=== PATIENT | female | born 1980 | race Caucasian/White ===

== ENCOUNTER → 2024-01-23 | Outpatient (CLI) | payer OTHER, SELFPAY ==
[2024-01-23 12:45] LABS: Thyroid Stim Hormone (TSH) 1.84 uIU/mL (0.358-3.74)
== END | disposition home or self-care (01) ==
LOC: BIMLAB 11:12
PROVIDERS: PCP Internal Medicine; Referring Provider Internal Medicine; Visit Provider Internal Medicine
DX: Z13.29 Encounter for screening for other suspected endocrine disorder (principal); E66.9 Obesity, unspecified
CPT/HCPCS: 36415; 83036; 84439; 84443

== ENCOUNTER → 2024-05-12 | Outpatient (CLI) | payer OTHER, SELFPAY ==
[2024-05-12 12:21] LABS: Absolute Lymphocyte Count 1.99 X10^3/uL (0.83-4.51); Basophil# 0.07 X10^3/uL; Eosinophil# 0.21 X10^3/uL; Eosinophils% 3.1 % (0-5); Hematocrit 39.2 % (37-47); Hemoglobin 12.8 g/dL (12.0-15.0); Lymphocyte # 1.99 X10^3/ul (0.83-4.51); Lymphocyte % 29.7 % (19-41); Mean Corp Hgb Conc 32.7 g/dL (32-36); Mean Corpuscular Hgb 28.4 pg (27.0-32.0); Mean Corpuscular Volume 86.9 fL (81-99); Mean Platelet Vol. 10.8 fl (6.2-12.0); Monocyte# 0.38 X10^3/uL; Monocyte% 5.7 % (0-10); NRBC Flagged by Analyzer 0 % (0-5); Neutrophil # 4.03 X10^3/uL (2.7-7.7); Neutrophil % 60.1 % (47-70); Platelet Count 325 K/mm3 (150-450); RBC Distribution Width CV 13.1 % (11.6-14.6); RBC Distribution Width SD 41.1 fl (35.1-43.9); Red Blood Count 4.51 M/mm3 (4.2-5.4); White Blood Count 6.7 K/mm3 (4.4-11.0)
[2024-05-12 12:25] LABS: ALB/GLOB Ratio 0.9 RATIO (0.9-2.4); AST(SGOT) 14 U/L (15-37); Alanine Aminotransfer ALT/SGPT 22 U/L (13-56); Albumin, Serum 3.3 g/dL (3.2-5.0); Alkaline Phosphatase 52 U/L (45-117); Anion Gap 7 (5-15); BUN 11 mg/dL (7-18); BUN/Creat Ratio 11.2 RATIO (10-20); Calcium,Total 9.4 mg/dL (8.5-10.1); Chloride 108 mmol/L (98-107); Creatinine, Serum 0.98 mg/dL (0.55-1.02); EST Glomerular Filtration Rate 66 mL/min (>60); Est Glom Filt Rate - Afr Amer 79 mL/min (>60); Globulin 3.7 g/dL (2.2-4.2); Glucose 90 mg/dL (74-106); Potassium 3.9 mmol/L (3.5-5.1); Sodium Level 138 mmol/L (136-145)
[2024-05-12 13:04] LABS: Amphetamine Urine VISTA POSITIVE (<1000 ng/mL); Barbiturate Urine VISTA NEGATIVE (< 200 ng/mL); Benzodiazepine Urine VISTA NEGATIVE (< 200 ng/mL); Cocaine Urine VISTA NEGATIVE (< 300 ng/mL); Ecstacy Urine VISTA NEGATIVE (< 500 ng/mL); Methadone Urine VISTA NEGATIVE (< 300 ng/mL); PCP Urine VISTA NEGATIVE (< 25 ng/mL); THC Urine VISTA NEGATIVE (< 50 ng/mL); Vista UDS pH Range 5
== END | disposition home or self-care (01) ==
LOC: BIMLAB 09:39
PROVIDERS: PCP Internal Medicine; Referring Provider Internal Medicine; Visit Provider Internal Medicine
DX: F90.9 Attention-deficit hyperactivity disorder, unspecified type (principal); Z51.81 Encounter for therapeutic drug level monitoring; E66.9 Obesity, unspecified
CPT/HCPCS: 36415; 80053; 80307; 85025

== ENCOUNTER → 2024-08-11 | Outpatient (CLI) | payer OTHER, SELFPAY ==
[2024-08-11 12:48] LABS: ALB/GLOB Ratio 0.8 RATIO (0.9-2.4); AST(SGOT) 8 U/L (15-37); Alanine Aminotransfer ALT/SGPT 14 U/L (13-56); Albumin, Serum 3.2 g/dL (3.2-5.0); Alkaline Phosphatase 66 U/L (45-117); Anion Gap 7 (5-15); BUN 10 mg/dL (7-18); BUN/Creat Ratio 10.6 RATIO (10-20); Calcium,Total 9.3 mg/dL (8.5-10.1); Chloride 106 mmol/L (98-107); Creatinine, Serum 0.95 mg/dL (0.55-1.02); EST Glomerular Filtration Rate 68 mL/min (>60); Est Glom Filt Rate - Afr Amer 83 mL/min (>60); Glucose 111 mg/dL (74-106); Potassium 3.7 mmol/L (3.5-5.1); Protein, Total 7.2 g/dL (6.4-8.2); Sodium Level 138 mmol/L (136-145)
== END | disposition home or self-care (01) ==
LOC: BIMLAB 10:06
PROVIDERS: PCP Internal Medicine; Referring Provider Internal Medicine; Visit Provider Internal Medicine
DX: E66.9 Obesity, unspecified (principal); F90.9 Attention-deficit hyperactivity disorder, unspecified type
CPT/HCPCS: 36415; 80053

== ENCOUNTER → 2025-01-19 | Outpatient (CLI) | payer OTHER, SELFPAY | END | disposition home or self-care (01) | LOC: LABSPEC 11:21 | PROVIDERS: PCP Internal Medicine; Referring Provider Physician Assistant; Visit Provider Physician Assistant | DX: R35.0 Frequency of micturition (principal) | CPT/HCPCS: 87077; 87086; 87088; 87186 ==

== ENCOUNTER → 2025-03-23 | Outpatient (CLI) | payer OTHER, SELFPAY ==
[2025-03-23 13:11] LABS: Amphetamine Urine NEGATIVE (<1000 ng/mL); Barbiturate Urine NEGATIVE (< 200 ng/mL); Benzodiazepine Urine NEGATIVE (< 200 ng/mL); Buprenorphine Urine NEGATIVE (< 200 ng/mL); Cocaine Urine NEGATIVE (< 300 ng/mL); Fentanyl, Urine NEGATIVE; Methadone Urine NEGATIVE (< 300 ng/mL); Opiates Urine NEGATIVE (< 300 ng/mL); Oxycodone, Urine NEGATIVE (< 100 ng/mL); PCP Urine NEGATIVE (< 25 ng/mL); THC Urine NEGATIVE (< 50 ng/mL)
== END | disposition home or self-care (01) ==
LOC: LABSPEC 09:58
PROVIDERS: PCP Internal Medicine; Referring Provider Internal Medicine; Visit Provider Internal Medicine
DX: F90.9 Attention-deficit hyperactivity disorder, unspecified type (principal); Z51.81 Encounter for therapeutic drug level monitoring
CPT/HCPCS: 80307

== ENCOUNTER → 2025-06-28 | Outpatient (CLI) | payer OTHER, SELFPAY ==
[2025-06-29 10:03] LABS: BETA-HYDROXYBUTYRATE 0.2 mmol/L (0.0-0.3)
== END | disposition home or self-care (01) ==
LOC: LAB 15:32
PROVIDERS: PCP Internal Medicine; Referring Provider Internal Medicine; Visit Provider Internal Medicine
DX: E87.8 Other disorders of electrolyte and fluid balance, not elsewhere classified (principal)
CPT/HCPCS: 82010

== ENCOUNTER 2025-09-11 07:29 | Emergency (ER) | payer OTHER, SELFPAY ==
[2025-09-11 07:30] VITALS: BP 129/97; PULSE 103; RESP 16; TEMP 36.2; O2SAT 100; BMI 35.2
--- NOTE | 2025-09-11 07:50 | EX.ED.DYSGE1 ---
HPI History of Present Illness Chief Complaint: Rash Informant: patient Narrative Narrative: Patient is a 45-year-old female presenting with a pruritic rash. - Rash onset following a recent trip to [place]; initially thought to be insect bites. - Rash is worsening, with new lesions appearing, particularly severe on the legs. - Extremely pruritic. - Lesions have spread to the chest and scalp. - Denies similar symptoms in other family members. - Suspected bed bugs; no evidence found. - Mother suggested chickenpox; patient reports having had chickenpox twice as a child. [facility] Medical History High anion gap Colon cancer screening URI (upper respiratory infection) Medication monitoring encounter ADHD Obesity (BMI 30-39.9) Screening for thyroid disorder Preventative health retirement Medications ?Medication ?Instructions ?Recorded ?Last Taken ?Type drospirenone 3 mg-ethinyl 1 tab PO QDAY #84 tabs 06/15/25 Unknown Rx estradiol 0.02 mg tablet (Jazlyn (28)) permethrin 5 % topical cream 1 applic topical Q14D 2 doses #60 09/11/25 Unknown Rx (Elimite) grams Allergy/AdvReac Type Severity Reaction Status Date / Time minocycline Allergy Mild Anaphylaxis Verified 06/24/25 08:21 Family History Father Multiple myeloma Diabetes Surgical History History of tonsillectomy Social History adopted: No household members: significant other and family current occupational status: employed current occupation: [employer], also self employed. pets and animals: Yes (1) pets and animals: dog(s) Smoking Status: Former smoker Tobacco: How many years used: 15 alcohol intake: current alcohol intake frequency: a few times a week substance use type: does not use caffeine: Yes (2) Type: coffee and other frequency: 1-2 times per week do you feel safe at home: Yes ROS ROS ED Constitutional Constitutional ED: Denies chills or fever(s) Eyes Eyes: Denies change in vision or diplopia ENT ENT ED: Denies rhinorrhea or sore throat Cardiovascular Cardiovascular: Denies chest pain or palpitations Respiratory/Chest Respiratory/Chest: Denies cough or dyspnea Gastrointestinal Gastrointestinal: Denies abdominal pain, diarrhea, nausea or vomiting Genitourinary Genitourinary ED: Denies dysuria or hematuria Musculoskeletal Musculoskeletal: Denies back pain or neck pain Integumentary Reports pruritus and rash; Denies abscess Neurologic Neurologic: Denies headache(s), paresthesias or weakness EXAM Physical Exam Const Vital Signs: 09/11/25 07:30 Temperature 97.1 F L Temperature Source Temporal Pulse Rate 103 H Respiratory Rate 16 Blood Pressure 129/97 H Blood Pressure Mean 107 Pulse Ox 100 Oxygen Delivery Method Room Air Positive well nourished and well developed General Appearance ED: well developed and NAD Eyes PERRL and EOMs intact bilaterally Neck full ROM and supple Resp normal respiratory effort Extremity Extremity Narrative: Erythematous papular nontender rash rash with a central pinpoint sized scab mostly on legs there is a grouping on the posterior aspect the right trapezius/shoulder and a couple scattered on the forearms and arms. No other rashes or bullae. No petechia. Neuro oriented x3, CN's II-XII intact bilaterally and no sensory deficits noted Sensorium / Orientation: awake and alert Motor Exam: strength 5/5 throughout Psych mental status grossly normal MDM MDM MDM Narrative Medical decision making narrative: Assessment: The patient is a 45-year-old female presenting for intensely pruritic papular rash that began while returning from [place] vacation. Lesions are clustered on legs, scattered on arms, and grouped over posterior right trapezius/shoulder. No fever or systemic complaints; vital signs normal. Bed bug exposure unlikely given absence of other affected travelers and continued lesion emergence after leaving hot. Given distribution, progression, and lack of visible insects, scabies (pediculosis corporis) is most likely. Plan: - Prescribed Elimite (permethrin) cream; instructed head-to-toe application overnight, rinse in morning, repeat in one week if lesions persist. - Provided home care and pruritus control instructions; advised return if rash worsens or fails to improve. - Discharged home in stable condition. Discharge Plan Triage Chief Complaint: Rash ED Provider: John Aguayo Dx/Rx/DC Orders Clinical Impression: Pediculosis corporis Instructions: ED Scabies Prescriptions: New permethrin [Elimite] 5 % cream 1 applic topical Q14D Qty: 60 0RF Rx Instructions: apply second treatment 14 days after first treatment if live lice remain No Action drospirenone-ethinyl estradiol [Jazlyn (28)] 3-0.02 mg tablet 1 tab PO QDAY Qty: 84 0RF Primary Care Provider: Maury Frazier Referrals: Darien Gonzales MD [Med Staff - [facility], Dermatology] - 10-14 Days if not better Activity Restrictions/Additional Instructions: - Apply the prescribed Elamite lotion (permethrin 5%) thoroughly from head to toe at bedtime; leave it on overnight and wash it off when you shower the next morning. - If the itching or new bumps continue, repeat the same application in 2 weeks. - Contact the office to schedule a follow-up if your rash or itching does not improve after treatment. Print Language: Mauritanian Disposition Disposition: Home, Self Care
== END 2025-09-11 08:02 | disposition home or self-care (01) ==
LOC: ED 07:54
PROVIDERS: Emergency Provider Emergency Medicine; PCP Internal Medicine; Visit Provider Emergency Medicine
DX: B85.1 Pediculosis due to Pediculus humanus corporis (principal); Z87.891 Personal history of nicotine dependence
CPT/HCPCS: 99282